=== PATIENT | female | born 1985 | race Caucasian/White ===

== ENCOUNTER 2020-12-14 21:56 | Emergency (ER) | payer OTHER, MEDICAID ==
[~2020-12-14] VITALS: Ht 162.6 cm; Wt 70.3 kg
[2020-12-14] MEDS ORDERED: LEXAPRO20 MG PO (22:01)
[2020-12-14] MEDS ORDERED: WELLBUTRIN XL300 MG PO (22:01)
[2020-12-14] MEDS ORDERED: PROPRANOLOL 20M20 M1 PO (22:06)
[2020-12-14] MEDS ORDERED: REXULTI1 MG PO (22:06)
[2020-12-14 22:50] VITALS: BP 103/42
[2020-12-14] MEDS ORDERED: ACETAMINOPHEN-1 EAC2 PO (22:53)
[2020-12-14] MEDS ORDERED: TORADOL 10 MG T10 MG PO (22:53)
[2020-12-14] MEDS ORDERED: PREDNISONE 20 M20 MG PO (23:06)
== END 2020-12-14 22:50 | disposition home or self-care (01) ==
LOC: M.ERS 21:56
DX: S83.005A Unspecified dislocation of left patella, initial encounter (principal); Z79.899 Other long term (current) drug therapy; X50.1XXA Overexertion from prolonged static or awkward postures, initial encounter; Y93.89 Activity, other specified; Y92.89 Other specified places as the place of occurrence of the external cause; Y99.9 Unspecified external cause status

== ENCOUNTER → 2021-08-13 | Outpatient (CLI) | payer OTHER, MEDICAID ==
[~2021-08-13] MED LIST: ACETAMINOPHEN-1 EAC2 PO; LEXAPRO20 MG PO; PREDNISONE 20 M20 MG PO; PROPRANOLOL 20M20 M1 PO; REXULTI1 MG PO; TORADOL 10 MG T10 MG PO; WELLBUTRIN XL300 MG PO
== END ==
LOC: M.LAB 16:50
PROVIDERS: ATTEND Orthopaedic Surgery
DX: Z01.812 Encounter for preprocedural laboratory examination (principal); Z20.822 Contact with and (suspected) exposure to COVID-19